=== PATIENT | male | born 1965 | race Caucasian/White ===

== ENCOUNTER 2017-10-20 06:31 | Day surgery (SDC) | payer OTHER ==
[2017-10-20] MEDS: NS 1,000 ML IV (07:00)
[2017-10-20] MEDS ORDERED: PROPOFOL 200 MG/20 ML VIAL As Ordered (08:00)
== END 2017-10-20 10:30 ==
LOC: M OPP 06:31
DX: Z12.11 Encounter for screening for malignant neoplasm of colon (principal); D12.3 Benign neoplasm of transverse colon; R01.1 Cardiac murmur, unspecified
CPT/HCPCS: 45380

== ENCOUNTER → 2019-08-28 | Outpatient (CLI) | payer OTHER ==
--- NOTE | 2019-08-28 18:33 | REP ---
REASON: Trauma to the 4th digit of the right hand. There is a tuft fracture with associated soft tissue swelling. Electronically Signed by Edmar Easton DO 08/28/2019 06:59 P
== END ==
LOC: M LRY 16:40
PROVIDERS: ATTEND Physician Assistant
DX: S69.91XA Unspecified injury of right wrist, hand and finger(s), initial encounter (principal); W18.30XA Fall on same level, unspecified, initial encounter; Y92.009 Unspecified place in unspecified non-institutional (private) residence as the place of occurrence of the external cause